=== PATIENT | female | born 1990 | race Caucasian/White ===

== ENCOUNTER 2022-12-18 09:51 | Inpatient (IN) | payer BC ==
[2022-12-18] VITALS (45 sets, daily range): BP systolic 116–171; BP diastolic 53–97; PULSE 55–126; TEMP 98.1–98.6
[~2022-12-18] VITALS: Ht 147.3 cm; Wt 61.4 kg
[~2022-12-18 09:51] MED LIST: ASPIRIN 81M81 MG/TA2 PO; PRENATAL; PROTONIX 40MG T40 MG PO; SYNTHROID0.05 MG/TA PO; VALTREX 50500 MG/TAB PO
--- NOTE | 2022-12-18 10:38 | NUR ---
1000 PATIENT HERE FROM OFFICE FOR HIGH BLOOD PRESSURE. EFM ON FHT 125 BABY VERY ACTIVE. NO CONTRACTIONS NOTED. BP 168/96 ON ARRIVAL FROM OFFICE. ASSESSMENT COMPLETED. DENIES HEADACHE OR ANY OTHER COMPLAINTS. PATIENT HERE YESTERDAY ALSO FOR LABOR CHECK AND LABS DRAWN WHICH WERE NORMAL.
[2022-12-18 13:40] LABS: BASO # 0.1 K/mm3 (0.0-0.2); BASO % 0.5 % (0.0-2.0); EOS # 0.2 K/mm3 (0.0-0.7); EOS % 2.3 % (0.0-4.0); GRAN # 6.2 K/mm3 (1.4-6.5); GRAN % 59.8 % (42.2-75.2); HEMOGLOBIN 11.7 g/dl (12.5-16.0); LYMPH # 2.9 K/mm3 (1.2-3.4); LYMPH % 27.9 % (20.0-51.0); MEAN CELL VOLUME 88 fl (80.0-100.0); MEAN CORPUSCULAR HEMOGLOBIN 29 pg (27-31); MEAN CORPUSCULAR HGB CONC 33 g/dl (33.0-37.0); MEAN PLATELET VOLUME 10.4 fl (7.4-10.4); MONO # 0.9 K/mm3 (0.1-0.6); MONO % 8.2 % (1.7-9.3); PLATELET COUNT 334 K/mm3 (130-400); RED BLOOD COUNT 3.99 M/mm3 (4.10-5.30); REDCELL DISTRIBUTION WIDTH-CV 12.6 % (11.5-14.5)
--- NOTE | 2022-12-18 14:30 | NUR ---
Assumed care of patient. Report given by Keiry Márquez r.n. Patient request to go to the bathroom. Assisted patient. Back to bed.
--- NOTE | 2022-12-18 15:07 | NUR ---
Blood pressure 166/85. New orders to give hydralazine per protocol. Hydralazine 5 mg iv given as ordered and per protocol.
--- NOTE | 2022-12-18 15:14 | NUR ---
Late decel noted in the eightys for 40 seconds, then back up to 120s. Dr. Lawler aware of decel. Visits with patient. Repositioned patient to right side.
--- NOTE | 2022-12-18 15:30 | NUR ---
Ambulates to the bathroom and back. Tolerates well.
--- NOTE | 2022-12-18 15:58 | NUR ---
1115 PATIENT UP TO BATHROOM. NO CONTRACTIONS NOTED AT THIS TIME.
--- NOTE | 2022-12-18 16:02 | NUR ---
1220 DR JERRY AT BEDSIDE. SVE /-3. AMNIOTRACE NEGATIVE AT THIS TIME. DR JERRY TALKS WITH PATIENT AND ABOUT OPTIONS AND ORDERS TO ADMIT PATIENT FOR INDUCTION DUE TO HER BLOOD PRESSURE AND HISTORY.
--- NOTE | 2022-12-18 16:08 | NUR ---
1315 IV STARTED IN RIGHT HAND LR 1000 CC AND PEN G 5 MU STARTED PER PROTOCOL. ALL NEW ADMIT ORDERS. PATIENT TEARFUL AT THIS TIME. 1330 PITOCIN STARTED AT [address] ORDER PER PROTOCOL. PATIENT IS TEARFUL.
--- NOTE | 2022-12-18 16:26 | NUR ---
1430 REPORT GIVEN TO Tamiko KIRBY RN TO ASSUME CARE OF PATIENT ANT THAT TIME.
--- NOTE | 2022-12-18 16:30 | NUR ---
States ready for epidural. Anesthesia notified. 164 Anesthesia here, visits with patient. Sits up for epidural. 164 Single shot given by anesthesia Bertin. Lies back down after epidural.
--- NOTE | 2022-12-18 17:20 | NUR ---
Dr. Lawler here, vag exam done, reports dilated 4, 90 percent effaced, minus two. 1721 Arom done, large amount of clear fluid noted. 1725 Wood catheter placed per sterile technique. Moderate amount of clear yellow urine noted.
--- NOTE | 2022-12-18 17:30 | NUR ---
Having late decels down in the nintys for 60 seconds then back up to the 100s for 1.5 minutes. Pitocin off, Patient to hands and knees. Dr. Ordonezure aware of decels and pitocin off. heart tones back up to the 120s.
--- NOTE | 2022-12-18 18:45 | NUR ---
1745 Pen g 2.5 million units iv given as ordered. Patient lies back down with this nurse and Dr. Lawler.
--- NOTE | 2022-12-18 19:15 | NUR ---
3494-2620: Prolonged deceleration down into 80s. Interventions done by this nurse at pt bedside, positioned pt from LL, RL, LL, then oxygen at 10L was applied. SVE, with pt consent and explanation, 4-5. Pitocin turned off at 1912. FHR returned to baseline at 1912. 1923: This nurse notified Dr. Lawler, see physician notification for further details.
--- NOTE | 2022-12-18 19:30 | NUR ---
1927: 10L oxygen turned off, mask taken off pt.
--- NOTE | 2022-12-18 21:15 | NUR ---
2105: Second dose of Penicillin G given and LR4 hung. 1068-0512: Prolonged late deceleration noted as low as in the 80s. Interventions applied are repositioning pt RL to LL, LL to RL, then on to kands and knees with O2 at 10mL applied at 2108. Return to baseline at 2114.
--- NOTE | 2022-12-18 21:33 | NUR ---
2117: Pt complete. 2119: Wood discontinued. 2129: Pt starts pushing with ctx. FHR tones audible throughout room. This nurse at pt bedside, attempting to readjust monitors x2 and present throughout the entire second stage. 2132: of viable baby boy at 2132. Baby to mothers abd, delayed cord clamping observed. Cord then clamped by Dr. Lawler and cut by FOB. Baby care assumed by nursery Carlie Ariza RN. Spontaneous delivery of intact placenta at 2136. Pitocin started at 333 mL/hr per protocol. Pt delivered intact, no tears. recovery time started at 2144.
[2022-12-19] VITALS (7 sets, daily range): BP systolic 123–153; BP diastolic 64–82; PULSE 62–102; TEMP 97.5–98.4
--- NOTE | 2022-12-19 03:00 | NUR ---
Pt transported to room 216, via [employer], at 0300 after conidtion is stable. Pt accompanied by pt spouse, pushing pt baby with belongings in tow. Pt oriented to room 216. Pt educated on whiteboard and packet folder. Pt educated on abnormal bleeding as well as care. Questions, needs, concerns encouraged. Pt verbalizes understanding and agreement of POC with "no" questions, concerns, or needs. After of pt baby at 3 on , pt conducted skin to skin with baby. At approximately 2245, pt had called out concerned about not being able to breathe. This nurse observed an event of an allergic reaction. Pulse oximeter applied, order for Benadryl given and oxygen applied at 10mL. This nurse monitored pt and continually assess respiratory and VS. Pt had welts/raised red bumps all across pt face, chest, arms, abdomen, and upper torso. Pt care provided, changed into fresh gown, linens changed, new BP cuff replaced, and any/all lines connecting to pt wiped down/sanitized. Pt stated "I think I am allergic to amniotic fluid because the only new thing I did was hold baby. I noticed I am red and itchy just in the areas I had him on me. When my first son was born, I did not get to hold him until a week after because he was in the NICU. By then, he was clean." At approximately 0030, pt called out again about having the same reaction. This nurse observed the same welts across pts arms and forearms only. Pt stated "I was holding him and it happened again." At this point in time. Pt baby has not had a bath yet. This nurse called Dr. Lawler of pt progress and to ask for orders for Hydrocortisone and Benadryl PO. Pt monitored, VS obtained and respiratory assessment ensued. banking supervisor was called for Hydrocortisone cream. At approximately 0230, pt condition stable to be moved via [employer] to have pericare performed. Pt states "I can breathe again now". Pericare performed, assessment conducted, and VS obtained before transporting pt to room.
[2022-12-19] MEDS ORDERED: IBU800 M1 PO (06:21)
[2022-12-19 07:06] LABS: HEMOGLOBIN 10.1 g/dl (12.5-16.0); MEAN CELL VOLUME 90 fl (80.0-100.0); MEAN CORPUSCULAR HEMOGLOBIN 30 pg (27-31); MEAN CORPUSCULAR HGB CONC 33 g/dl (33.0-37.0); MEAN PLATELET VOLUME 10.6 fl (7.4-10.4); PLATELET COUNT 287 K/mm3 (130-400); REDCELL DISTRIBUTION WIDTH-CV 12.7 % (11.5-14.5)
[2022-12-19 07:10] LABS: HEMATOCRIT 30.5 % (37.0-47.0)
[2022-12-19 08:10] LABS: ALBUMIN 2.2 gm/dL (3.5-5.0); BILIRUBIN,TOTAL 0.3 mg/dL (0.2-1.2); CALCIUM 8.2 mg/dL (8.4-10.2); CREATININE, serum 0.64 mg/dL (0.57-1.11); POTASSIUM 4.4 mmol/L (3.5-4.5); TOTAL PROTEIN 5.1 gm/dL (6.2-8.1)
--- NOTE | 2022-12-19 09:43 | NUR ---
Initial Visit; Parents thanked Cow Washer for offering congratulations and God's blessings for the of their son. Cow Washer offered "Special Blessings" for the baby. Cow Washer thanked family for choosing [facility].
--- NOTE | 2022-12-19 13:08 | NUR ---
PT SKIN TO SKIN WITH X30 MINUTES. REPORTS MILD "THROAT SCRATCHING" BUT NO HIVES PRESENT. REPORTS SIGNIFICANT DECREASE IN SYMPTOMS FOLLOWING YESTERDAYS EVENT OF "HIVES AND THROAT SWELLING" WHILE HOLDING INFANT FOLLOWING DELIVERY. BENADRYL AVAILABLE AND HYDROCORTISONE CREAM AT BEDSIDE PER ORDER.
--- NOTE | 2022-12-19 20:14 | NUR ---
MOM DID NOT NEED TO USE THE HYDROCORTISONE CREAM FOR DISCOMFORT DURING THE BRST FEEDING SESSION. MOM STATED SHE FELT OK
[2022-12-20 04:00] VITALS: BP 143/76; PULSE 65; TEMP 98.2
--- NOTE | 2022-12-20 05:00 | NUR ---
MOM CONTINUES TO BE UPSET- TEA AND SNACK GIVEN- MOM NOW IS NOW COMPLAINING OF BACK AND HIPS HURTING- PT WAS HUNCHED OVER PHONE DOING FACE TIME WITH FAMILY WARM BLANKETS GIVEN AND GOT PT COMFORTABLE ON THE BED.
[2022-12-20 08:22] VITALS: BP 146/97; PULSE 80; TEMP 98.5
--- NOTE | 2022-12-20 09:53 | NUR ---
Follow-up visit; Solid Waste Management Engineer learned from patient's nurse that patient's Aunt just . Solid Waste Management Engineer visited Jocel and offered comfort and her condolences. Patient appeared to appreciate Solid Waste Management Engineer looking in on her again and letting her know Spiritual Care is available.
--- NOTE | 2022-12-20 14:30 | NUR ---
1430 - DISCHARGE INSTRUCTIONS REVIEWED AND BORDER STATUS EXPLAINED. PATIENT VERBALIZES UNDERSTANDING. QUESTIONS ANSWERED.
== END 2022-12-20 14:30 | disposition home or self-care (01) | DRG 806 ==
LOC: LDRO 09:51 → LDR 12:36 → OB 12-19 03:00
PROVIDERS: ADMIT Student in an Organized Health Care Education/Training Program
PROC: 10E0XZZ Delivery of Products of Conception, External Approach (ICD-10-PCS; principal; 2022-12-18)
PROC: 10907ZC Drainage of Amniotic Fluid, Therapeutic from Products of Conception, Via Natural or Artificial Opening (ICD-10-PCS; 2022-12-18)
PROC: 3E033VJ Introduction of Other Hormone into Peripheral Vein, Percutaneous Approach (ICD-10-PCS; 2022-12-18)
DX: O11.4 Pre-existing hypertension with pre-eclampsia, complicating childbirth (principal); O98.32 Other infections with a predominantly sexual mode of transmission complicating childbirth; Z37.0 Single live birth; O99.12 Other diseases of the blood and blood-forming organs and certain disorders involving the immune mechanism complicating childbirth; Z3A.36 36 weeks gestation of pregnancy; O76 Abnormality in fetal heart rate and rhythm complicating labor and delivery; O99.284 Endocrine, nutritional and metabolic diseases complicating childbirth; E03.9 Hypothyroidism, unspecified; A60.09 Herpesviral infection of other urogenital tract; K29.50 Unspecified chronic gastritis without bleeding; O99.62 Diseases of the digestive system complicating childbirth; O69.81X0 Labor and delivery complicated by cord around neck, without compression, not applicable or unspecified; D75.A Glucose-6-phosphate dehydrogenase (G6PD) deficiency without anemia; Z23 Encounter for immunization
CPT/HCPCS: J0360; J0702; J1200; J2540; J2590; J2795; J7120

== ENCOUNTER → 2023-01-17 | Outpatient (CLI) | payer BC ==
[~2023-01-17] MED LIST changes: +IBU800 M1 PO
--- NOTE | 2023-01-17 15:46 | NUR ---
Pt, Jovanni Lima, presents to walk-in BF clinic with 30 day old baby boy, Eloina Jones, and her SO Linus Jones. Pt c/o sore nipples while , difficult latch, and needing to pump and bottle fed because of these troubles. Eloina was born on [birth year] at 36+ weeks gestation and weighed 5# 1.8oz (2320 gms). He has a sublingual frenulum released prior to discharge from the hospital, however this does not seem to have fixed the latch troubles. Today Eloina weighs 6# 2.3oz (2786 gms). Pt is currently pumping and bottle feeding, providing ~65ml q 2-4 hours. She pumps 85-205 oz breastmilk q 2-4 hours. Initially Eloina struggles to latch on, but eventually LC able to get him on well enough to get milk flow started and he nurses. Pt states on the left breast it feels like he is rubbing his tongue across the face of the nipple. She does not have this pain on the right but his effort is not as vigerous. After Eloina had a weight gain of 48 gms. He appears hungry, pt states she has some EBM to provide him. LC evaluate his suck effort with a gloved finger. He does not grasp the finger correctly or extend the tongue across the gum line to hold it properly. While Eloina has good [id number] elevation, it seems he still has a posterior restriction. Pt provided information on providers that manage oral tethers. POC: Offer breast, follow with pumping and bottle feeding as needed to ensure adequate weight gain. Consider having oral tethers evaluated. F/U: As desired at walk-in clinic and as scheduled with physicians. Questions invited and answered.
== END ==
LOC: LAC 13:18
DX: Z39.1 Encounter for care and examination of lactating mother (principal)

== ENCOUNTER 2024-06-29 00:55 | Emergency (ER) | payer BC ==
[~2024-06-29] VITALS: Ht 147.3 cm; Wt 49.5 kg
[2024-06-29 01:29] LABS: BASO # 0.1 K/mm3 (0.0-0.2); BASO % 0.4 % (0.0-2.0); EOS # 0.5 K/mm3 (0.0-0.7); EOS % 2.9 % (0.0-4.0); GRAN # 10.9 K/mm3 (1.4-6.5); GRAN % 69.1 % (42.2-75.2); HEMATOCRIT 37.7 % (37.0-47.0); HEMOGLOBIN 12.6 g/dl (12.5-16.0); LYMPH # 3.4 K/mm3 (1.2-3.4); LYMPH % 21.6 % (20.0-51.0); MEAN CELL VOLUME 92 fl (80.0-100.0); MEAN CORPUSCULAR HEMOGLOBIN 31 pg (27-31); MEAN CORPUSCULAR HGB CONC 33 g/dl (33.0-37.0); MEAN PLATELET VOLUME 9.1 fl (7.4-10.4); MONO # 0.9 K/mm3 (0.1-0.6); MONO % 5.6 % (1.7-9.3); PLATELET COUNT 311 K/mm3 (130-400); REDCELL DISTRIBUTION WIDTH-CV 11.3 % (11.5-14.5)
[2024-06-29] MEDS ORDERED: NS 1,000 ML IV ONE (01:30)
[2024-06-29 01:42] LABS: PH 5.5 (5.0-8.5); URINE APPEARANCE CLEAR (CLEAR/HAZY); URINE BLOOD NEGATIVE (NEGATIVE); URINE COLOR YELLOW (YELLOW); URINE GLUCOSE NEGATIVE (NEGATIVE); URINE KETONE NEGATIVE (NEGATIVE); URINE NITRATE NEGATIVE (NEGATIVE); URINE PROTEIN(semi-quant) NEGATIVE (NEGATIVE); URINE UROBILINOGEN 0.2 E.U/dL (0.2-1.0)
[2024-06-29 01:45] LABS: ALBUMIN 4.1 g/dL (3.5-5.0); BILIRUBIN,TOTAL 0.6 mg/dL (0.2-1.2); CALCIUM 9.3 mg/dL (8.4-10.2); CREATININE, serum 0.79 mg/dL (0.57-1.11); POTASSIUM 3.5 mEq/L (3.5-4.5); TOTAL PROTEIN 7.3 g/dl (6.2-8.1)
[2024-06-29 01:55] LABS: COLLECTION METHOD CLEAN CATCH
[2024-06-29] MEDS ORDERED: Iohexol 300 - 100 ML VIAL IV ONE (02:28)
[2024-06-29] MEDS ORDERED: NS 50 ML IV SCH (02:29)
[2024-06-29 02:43] VITALS: TEMP 98.4
[2024-06-29] MEDS ORDERED: Ondansetron 4 MG/2 ML VIAL IV ONE (04:45)
[2024-06-29] MEDS ORDERED: Ketorolac 30 MG/ML VIAL IV ONE (04:45)
[2024-06-29] MEDS ORDERED: NORCO 325 MG-51 TAB PO (09:14)
[2024-06-29] MEDS ORDERED: ZOFRAN ODT4 MG PO (09:14)
[2024-06-29 09:28] VITALS: BP 117/81; PULSE 73
[2024-07-01] MEDS ORDERED: AMOXICILLIN 50500 MG PO (13:55)
== END 2024-06-29 09:28 | disposition home or self-care (01) ==
LOC: COL.ER 00:55
PROVIDERS: Emergency Medicine
DX: R10.31 Right lower quadrant pain (principal)
CPT/HCPCS: J1885; J2405; J7030; Q9967